=== PATIENT | female | born 1990 ===

== ENCOUNTER → 2025-03-01 | Day surgery (SDC) | payer OTHER ==
[2025-02-26 09:23] VITALS: BP 119/77
[2025-02-26 10:27] LABS: URINE APPEARANCE Cloudy; URINE BILIRRUBIN Negative (NEGATIVE); URINE BLOOD Negative; URINE COLOR Yellow; URINE GLUCOSE Negative (NEGATIVE); URINE KETONE Negative (NEGATIVE); URINE LEUKOCYTE Trace; URINE NITRATE Negative; URINE PROTEIN Negative (NEGATIVE); URINE UROBILINOGEN 0.2 E.U./dl
[2025-02-26 10:28] LABS: BASO % 0.6 % (0.1-1.2); EOS # 0.22 (0.04-0.54); EOS % 2.4 % (0.7-7.0); LYMPH # 2.60 (1.18-3.74); LYMPH % 28.9 % (19.3-53.1); MEAN PLATELET VOLUME 11.30 fl (9.4-12.4); MONO # 0.93 (0.24-0.82); MONO % 10.3 % (4.7-12.5); NEUT # 5.15 (1.56-6.13); NEUT % 57.2 % (34.0-71.1); RED CELL DISTRIBUTION WIDTH 12.8 % (11.6-14.4)
[2025-02-26 10:32] LABS: URINE EPITHELIAL CELLS 70.7 uL (0.0-38.8); URINE RBC 40.9 uL (0.0-20.8); URINE WBC 45.3 uL (0.0-23.2)
[2025-02-26 10:34] LABS: URINE BACTERIA > 9821.5 uL (0.0-1933); URINE CAST 0.43 uL (0.0-1.40)
[2025-02-26 10:57] LABS: INR < 0.93
[2025-02-26 11:27] LABS: ALT/SGPT 24.0 U/L (12-78); AST/SGOT 13.0 U/L (15-37); BILIRUBIN TOTAL 0.61 mg/dL (0.3-1.2); BUN CREA RATIO 17.0 (7.0-25.0); CREATININE SERUM 0.66 mg/dL (0.55-1.02); GFR 102.52; GLOBULINA 3.5 G/DL (2.4-3.5); GLUCOSE FASTING 81.0 mg/dL (65-100); OSMOLALITY SERUM 278.0 MOSM/KG (275-295)
[2025-02-26 12:07] LABS: RH POSITIVE
[~2025-03-01] VITALS: Ht 165.1 cm; Wt 69.9 kg
[~2025-03-01] MED LIST: KETOROLAC TROMETHAMINE 30 MG VIAL IV ONE; PHENDIMETRAZIN105 M1; POVIDONE-IODINE 118 ML BOTT TOP ONE; RINGERS SOLUTION,LACTATED 1,000 ML IV SCH; SYNTHROID88 MCG PO; VITAMIN D
== END | disposition home or self-care (01) ==
LOC: ADM 02-26 07:45 → CIR.AMB 07:45
PROVIDERS: ATTEND Student in an Organized Health Care Education/Training Program
DX: N93.8 Other specified abnormal uterine and vaginal bleeding (principal); D25.0 Submucous leiomyoma of uterus; Z88.0 Allergy status to penicillin

== ENCOUNTER 2025-04-05 08:30 | Inpatient (IN) | payer OTHER ==
[~2025-04-05] VITALS: Ht 152.4 cm; Wt 73.0 kg
[~2025-04-05 08:30] MED LIST changes: -KETOROLAC TROMETHAMINE 30 MG VIAL IV ONE; -POVIDONE-IODINE 118 ML BOTT TOP ONE; -RINGERS SOLUTION,LACTATED 1,000 ML IV SCH
[2025-04-09 12:52] LABS: BASO % 0.8 % (0.1-1.2); EOS # 0.27 (0.04-0.54); EOS % 2.8 % (0.7-7.0); LYMPH # 2.99 (1.18-3.74); LYMPH % 30.9 % (19.3-53.1); MEAN PLATELET VOLUME 10.60 fl (9.4-12.4); MONO # 0.85 (0.24-0.82); MONO % 8.8 % (4.7-12.5); NEUT # 5.43 (1.56-6.13); NEUT % 56.1 % (34.0-71.1); RED CELL DISTRIBUTION WIDTH 12.8 % (11.6-14.4)
[2025-04-09 13:12] LABS: URINE APPEARANCE Clear; URINE BILIRRUBIN Negative (NEGATIVE); URINE BLOOD Negative; URINE COLOR Yellow; URINE GLUCOSE Negative (NEGATIVE); URINE KETONE Negative (NEGATIVE); URINE LEUKOCYTE Negative; URINE NITRATE Negative; URINE PROTEIN Negative (NEGATIVE); URINE UROBILINOGEN 0.2 E.U./dl
[2025-04-09 13:16] LABS: URINE BACTERIA 332.3 uL (0.0-1933); URINE EPITHELIAL CELLS 7.3 uL (0.0-38.8); URINE RBC 3.3 uL (0.0-20.8); URINE WBC 4.9 uL (0.0-23.2)
[2025-04-09 13:17] LABS: INR 0.98
[2025-04-09 13:29] LABS: URINE CAST 0.00 uL (0.0-1.40)
[2025-04-09 13:38] LABS: ALT/SGPT 23 U/L (12-78); AST/SGOT 13 U/L (15-37); BILIRUBIN TOTAL 0.31 mg/dL (0.3-1.2); BUN CREA RATIO 13 (7.0-25.0); CREATININE SERUM 0.70 mg/dL (0.55-1.02); GFR 95.79; GLOBULINA 3.8 G/DL (2.4-3.5); GLUCOSE FASTING 80 mg/dL (65-100); OSMOLALITY SERUM 281 MOSM/KG (275-295)
[2025-04-09 13:39] LABS: HCG QUANTITATIVE < 1 mUI/mL (1-3)
[2025-04-24] MEDS ORDERED: VITAMIN D310 MC5 PO (11:20)
[2025-04-24] MEDS ORDERED: POVIDONE-IODINE 118 ML BOTT TOP ONE (13:06)
[2025-04-24] MEDS ORDERED: CEFAZOLIN SODIUM 1,000 MG VIAL IV ONE (14:45)
[2025-04-24] MEDS ORDERED: METHYLENE BLUE 50MG/10ML AMP IV ONE (14:46)
[2025-04-24] MEDS ORDERED: VASOPRESSIN 20 UNITS/ML VIAL ONE (15:43)
[2025-04-24] MEDS ORDERED: SUGAMMADEX SODIUM 200 MG/2 ML VIAL IV ONE (16:30)
[2025-04-24] MEDS ORDERED: RINGERS SOLUTION,LACTATED 1,000 ML IV SCH (17:15)
[2025-04-24] MEDS ORDERED: ACETAMINOPHEN 500 MG GEL..CAP PO SCH (18:00)
[2025-04-24] MEDS ORDERED: MORPHINE SULFATE 4 MG/ML CARTRIDGE IV SCH (18:00)
[2025-04-24] MEDS ORDERED: KETOROLAC TROMETHAMINE 30 MG VIAL IV SCH (18:00)
[2025-04-24] MEDS ORDERED: KETOROLAC TROMETHAMINE 30 MG VIAL IV ONE (18:25)
[2025-04-24 21:32] VITALS: BP 108/71
[2025-04-25 00:49] VITALS: BP 99/64
[2025-04-25] MEDS ORDERED: LEVOTHYROXINE SODIUM 88 MCG TABLET PO SCH (06:00)
[2025-04-25 06:52] LABS: BASO % 0.3 % (0.1-1.2); EOS # 0.06 (0.04-0.54); EOS % 0.5 % (0.7-7.0); LYMPH # 2.23 (1.18-3.74); LYMPH % 19.2 % (19.3-53.1); MEAN PLATELET VOLUME 11.10 fl (9.4-12.4); MONO # 1.30 (0.24-0.82); MONO % 11.2 % (4.7-12.5); NEUT # 7.95 (1.56-6.13); NEUT % 68.5 % (34.0-71.1); RED CELL DISTRIBUTION WIDTH 13.0 % (11.6-14.4)
[2025-04-25] MEDS ORDERED: SIMETHICONE 125 MG CAPSULE PO SCH (09:00)
[2025-04-25 09:17] VITALS: BP 113/76
[2025-04-25 16:00] VITALS: BP 120/77
[2025-04-26 00:09] VITALS: BP 121/78
[2025-04-26 08:00] VITALS: BP 113/72
== END 2025-04-26 09:43 | disposition home or self-care (01) | DRG 743 ==
LOC: SURG 04-12 09:45 → O/R 04-24 10:00 → OB/GYN 04-24 17:51
PROVIDERS: ADMIT Student in an Organized Health Care Education/Training Program; ATTEND Student in an Organized Health Care Education/Training Program
PROC: 3E1P78Z Irrigation of Female Reproductive using Irrigating Substance, Via Natural or Artificial Opening (ICD-10-PCS; 2025-04-24)
PROC: 0UQ Female Reproductive System, Repair (ICD-10-PCS; 2025-04-24)
PROC: 0DNW0ZZ Release Peritoneum, Open Approach (ICD-10-PCS; 2025-04-24)
PROC: 0UB90ZZ Excision of Uterus, Open Approach (ICD-10-PCS; principal; 2025-04-24 17:00)
DX: D25.9 Leiomyoma of uterus, unspecified (principal); Z98.890 Other specified postprocedural states; R10.20 Pelvic and perineal pain unspecified side

== ENCOUNTER 2025-04-24 06:00 | Outpatient (CLI) | payer OTHER ==
[2025-04-24] MEDS ORDERED: VITAMIN D310 MC5 PO (11:20)
== END 2025-04-24 07:58 | disposition home or self-care (01) ==
LOC: LAB 06:00
PROVIDERS: ATTEND Student in an Organized Health Care Education/Training Program
DX: Z32.01 Encounter for pregnancy test, result positive (principal)